=== PATIENT | female | born 1935 | race Hispanic/Latino ===

== ENCOUNTER 2017-09-06 12:59 | Emergency (ER) | payer MEDICARE ==
[~2017-09-06] VITALS: Ht 154.9 cm; Wt 56.2 kg
[2017-09-06] MEDS ORDERED: ASPIRIN EC81 MG PO (13:20)
[2017-09-06] MEDS ORDERED: ENULOSE10 GM/15 M PO (13:20)
[2017-09-06] MEDS ORDERED: LEVOTHYROXINE50 MCG PO (13:20)
[2017-09-06] MEDS ORDERED: CALCIUM CARBON500 MG PO (13:20)
[2017-09-06] MEDS ORDERED: LATANOPROST2.5 ML OP (13:20)
[2017-09-06] MEDS ORDERED: FERROUS GLUCON324 M1 PO (13:20)
[2017-09-06] MEDS ORDERED: LEVEMIR100 UNIT/1 SQ (13:20)
[2017-09-06] MEDS ORDERED: CALCITRIOL0.25 MCG PO (13:20)
[2017-09-06] MEDS ORDERED: CARVEDILOL12.5 MG PO (13:20)
[2017-09-06] MEDS ORDERED: ATORVASTATIN CA20 MG PO (13:20)
[2017-09-06] MEDS ORDERED: ERGOCALCIF8000 UNIT/ PO (13:20)
[2017-09-06] MEDS ORDERED: CLOPIDOGREL75 MG PO (13:20)
[2017-09-06] MEDS ORDERED: PANTOPRAZOLE SO40 MG PO (13:20)
[2017-09-06] MEDS ORDERED: LISINOPRIL10 MG PO (13:20)
--- NOTE | 2017-09-06 15:13 | Diagnostic Imaging Report ---
Examination: CT BRAIN WITHOUT CONTRAST History: Fall; head injury. Comparison studies:None Technique: Axial images were obtained from the skull base to the vertex. Coronal and sagittal images reconstructed from the axial data. Intravenous contrast: None Findings: Scalp: Small left parietal scalp hematoma. Bones: No fractures, blastic or lytic lesions. Brain sulci: Mild volume loss for age. Ventricles: No hydrocephalus. Extra-axial space: No abnormalities. Parenchyma: There are confluent areas of hypoattenuation in the periventricular and subcortical white matter, nonspecific. Chronic lacunar infarcts are seen in the bilateral striatocapsular regions and left subinsular cortex. No masses, hemorrhage, or acute or chronic cortical based vascular insults. Sellar/suprasellar region: No abnormalities. Craniocervical junction: Patent foramen magnum. No Chiari one malformation. Incidental findings: Atherosclerotic calcification of the cavernous and supraclinoid internal carotid and V4 segments of the bilateral vertebral arteries. Impression: 1. Small left parietal scalp hematoma. 2. No acute intracranial abnormalities. 3. Mild volume loss. 4. Moderate chronic microvascular ischemic change. 5. Chronic lacunar infarcts, as above. Signed by: Dr. Bernadette Marinelli M.D. on 09/06/2017 3:09 PM
--- NOTE | 2017-09-06 15:20 | Diagnostic Imaging Report ---
Examination: CT CERVICAL SPINE WITHOUT CONTRAST HISTORY:Neck pain. Fall. COMPARISON:None. TECHNIQUE: Multidetector helical axial images were obtained without contrast from the foramen magnum to T1. Coronal and sagittal reformatted images were done. Bone and soft tissue windows were evaluated. FINDINGS: Alignment:Straightening of normal lordosis. Grade I anterolisthesis of C3 on C4. Vertebrae: Normal height and density. No acute fracture, infection or neoplasm. Disc space heights: Severely narrowed height a C5-C6. Caliber of spinal canal: Developmentally normal. Posterior fossa and craniocervical junction: Foramen magnum patent. No Chiari 1 malformation. Soft tissues: No abnormality. Degenerative changes: No disc bulge/ herniation or foraminal or canal stenosis. Additional findings: Double lumen catheter int he right internal jugular vein without visualization of the distal tip due to exclusion from field of view. IMPRESSION: No acute abnormalities. Signed by: Dr. Bernadette Marinelli M.D. on 09/06/2017 3:16 PM
== END 2017-09-06 17:55 | disposition home or self-care (01) ==
LOC: ER 12:59
DX: S00.03XA Contusion of scalp, initial encounter (principal); R51 Headache; W18.39XA Other fall on same level, initial encounter; Y92.008 Other place in unspecified non-institutional (private) residence as the place of occurrence of the external cause; I10 Essential (primary) hypertension; Z99.2 Dependence on renal dialysis; Z79.01 Long term (current) use of anticoagulants; Z95.0 Presence of cardiac pacemaker
CPT/HCPCS: 70450; 72125; 99283

== ENCOUNTER → 2017-10-22 | Outpatient (CLI) | payer OTHER ==
[~2017-10-22] MED LIST: ASPIRIN EC81 MG PO; ATORVASTATIN CA20 MG PO; CALCITRIOL0.25 MCG PO; CALCIUM CARBON500 MG PO; CARVEDILOL12.5 MG PO; CLOPIDOGREL75 MG PO; ENULOSE10 GM/15 M PO; ERGOCALCIF8000 UNIT/ PO; FERROUS GLUCON324 M1 PO; LATANOPROST2.5 ML OP; LEVEMIR100 UNIT/1 SQ; LEVOTHYROXINE50 MCG PO; LISINOPRIL10 MG PO; PANTOPRAZOLE SO40 MG PO
[2017-10-30 13:02] LABS: ANION GAP 12.2 mmol/L (8-16); POTASSIUM 4.2 mmol/L (3.5-5.1)
[2017-10-30 13:03] LABS: ALBUMIN 2.4 g/dL (3.5-5.0); ALBUMIN/GLOBULIN RATIO 0.5 (0.8-2.0); CALCIUM 8.1 mg/dL (8.4-10.2); CREATININE, SERUM 2.26 mg/dL (0.57-1.11); HEMOGLOBIN 9.5 g/dL (12.0-16.0); RED BLOOD COUNT 3.17 x10e6/uL (3.6-5.1)
[2017-10-30 13:04] LABS: BASOPHILS % 0.2 % (0.0-1.0); EOSINOPHILS % 0.9 % (0.0-6.0); HEMATOCRIT 30.3 % (34.2-44.1); LYMPHOCYTES # (AUTO) 0.7 (1.0-3.2); MEAN CORPUSCULAR HGB CONC 31.4 g/dL (31-35); MEAN CORPUSCULAR VOLUME 95.6 fL (81-99); MONOCYTES # (AUTO) 0.3 (0.2-0.8); MONOCYTES % 6.3 % (4.4-11.3); NEUTROPHILS # (AUTO) 3.3 (2.1-6.9); NEUTROPHILS % 77.4 % (38.7-80.0); PLATELET COUNT 89 x10e3/uL (140-360)
== END ==
LOC: NPA 13:00
DX: R69 Illness, unspecified (principal)
CPT/HCPCS: 36415; 80053; 85025